=== PATIENT | female | born 1995 | race Caucasian/White ===

== ENCOUNTER 2021-07-09 16:50 | Emergency (ER) | payer BC ==
[~2021-07-09] VITALS: Ht 165.1 cm; Wt 95.2 kg
== END 2021-07-09 18:56 | disposition home or self-care (01) ==
LOC: ED 16:50
DX: L50.9 Urticaria, unspecified (principal); Z88.6 Allergy status to analgesic agent; Z88.5 Allergy status to narcotic agent
CPT/HCPCS: 99282; Q0163

== ENCOUNTER 2021-07-12 08:21 | Emergency (ER) | payer BC ==
[~2021-07-12] VITALS: Ht 165.1 cm; Wt 95.2 kg
--- OUTSIDE RECORDS SUMMARY | 2021-07-12 08:24 | XMS ---
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 [facility] has no Care Guidelines for this patient. [facility] (12 MO.) [facility] NOTE: Visits indicate total known visits. ED/C VISIT TRACKING (12 MO.) [facility]21 08[facility] COMPLAINT: - THROAT PAIN 07/11/2021 12:10 [facility] TYPE: Emergency COMPLAINT: - SKIN CONDITION 07/09/2021 16:51 [facility] TYPE: Emergency COMPLAINT: - BODY RASH, JOINT PAIN INPATIENT VISIT TRACKING (12 MO.) No inpatient visits to display in this time frame [email or web address]
[2021-07-12] MEDS ORDERED: PREDNISONE20 MG PO (09:14)
[2021-07-12] MEDS ORDERED: ONDANSETRON ODT8 MG PO (09:14)
== END 2021-07-12 09:31 | disposition home or self-care (01) ==
LOC: ED 08:21
DX: T80.69XA Other serum reaction due to other serum, initial encounter (principal); R07.89 Other chest pain; R21 Rash and other nonspecific skin eruption; J02.9 Acute pharyngitis, unspecified; Z88.5 Allergy status to narcotic agent
CPT/HCPCS: 99284

== ENCOUNTER 2021-09-12 11:44 | Emergency (ER) | payer OTHER, BC ==
[~2021-09-12] VITALS: Ht 165.1 cm; Wt 90.7 kg
[~2021-09-12 11:44] MED LIST: ONDANSETRON ODT8 MG PO; PREDNISONE20 MG PO
[2021-09-12] MEDS ORDERED: VENTOLIN HFA18 GM INH (12:03)
== END 2021-09-12 13:49 | disposition home or self-care (01) ==
LOC: ED 11:44
DX: S61.012A Laceration without foreign body of left thumb without damage to nail, initial encounter (principal); J45.909 Unspecified asthma, uncomplicated; G43.909 Migraine, unspecified, not intractable, without status migrainosus; Z88.5 Allergy status to narcotic agent; Z91.048 Other nonmedicinal substance allergy status; W26.0XXA Contact with knife, initial encounter; Y99.0 Civilian activity done for income or pay
CPT/HCPCS: 12001; 99282-25